=== PATIENT | male | born 1955 | race Caucasian/White ===

== ENCOUNTER 2021-02-24 07:17 | Inpatient (IN) | payer MEDICARE, OTHER ==
[2021-02-24] MEDS ORDERED: Acetaminophen 500 MG TAB ONE (08:00)
[2021-02-24 08:19] LABS: #Basophils 0.1 10x3/uL (0.0-0.2); #Eosinphils 0.1 10x3/uL (0.0-0.5); #Monocytes 1.7 10x3/uL (0.0-1.1); #Neutrophils 8.5 10x3/uL (1.5-8.4); %Basophils 0.7 % (0.0-2.0); %Eosinophils 1.2 % (0.0-6.0); %Monocytes 14.8 % (0.0-10.0); Hemoglobin 10.1 g/dL (13.5-17.5); Mean Corpuscular HGB CONC 32.7 g/dL (32.0-36.0); Mean Corpuscular Hemoglobin 30.9 pg (27.0-33.0); Mean Corpuscular Volume 94.5 fl (81.2-95.1); Mean Platelet Volume 11.1 fl (7.4-10.4); Platelet Count 304 10x3/uL (150-450); RBC Distribution Width 13.5 % (11.5-14.5); Red Blood Cell (RBC) Count 3.27 10x6/uL (4.32-5.72); White Blood Cell (WBC) Count 11.5 10x3/uL (3.5-10.5)
[2021-02-24 08:28] LABS: PTT 33.5 sec (22.0-33.0); Prothrombin Time 11.3 sec (9.5-12.1)
[2021-02-24 08:34] LABS: ALT (SGPT) 11 U/L (8-55); AST (SGOT) 14 U/L (5-34); Albumin 3.9 g/dL (3.4-4.8); Alkaline Phosphatase 87 U/L (40-110); Anion Gap 17 mmol/L (10-20); BUN (Urea Nitrogen) 45 mg/dL (8.4-25.7); Bilirubin, Total 0.9 mg/dL (0.2-1.2); Calc. Creatinine Clearance 0 mL/min (70-130); Calcium 9.6 mg/dL (7.8-10.44); Carbon Dioxide 16 mmol/L (23-31); Chloride 103 mmol/L (98-107); Glucose 93 mg/dL (80-115); Potassium 4.3 mmol/L (3.5-5.1); Protein, Total 7.9 g/dL (5.8-8.1); Sodium 132 mmol/L (136-145)
[2021-02-24] MEDS ORDERED: Piperacillin/Tazobactam 4.5 GM VIAL ONE (08:39)
[2021-02-24 11:02] LABS: SARS-CoV-2 NAA Rapid Test Not Detected (NotDetected)
[2021-02-24 14:09] VITALS: BMI 29.1
[2021-02-24] MEDS ORDERED: Calcium Carbonate 500 MG ChewTAB PO PRN (14:12)
[2021-02-24] MEDS ORDERED: Senokot S 8.6-50 MG TAB PO PRN (14:12)
[2021-02-24] MEDS ORDERED: Ondansetron PF 4 MG/2 ML Vial IVP PRN (14:12)
[2021-02-24] MEDS ORDERED: hydrALAZINE 20 MG/ML VIAL SLOW IVP PRN (14:14)
[2021-02-24] MEDS ORDERED: Dextrose 50% Abboject 50 ML SYRINGE SLOW IVP PRN (14:20)
[2021-02-24] MEDS ORDERED: Dextrose 5% in Water 1,000 ML IV PRN (14:20)
[2021-02-24] MEDS ORDERED: Sodium Chloride 0.9% 500 ML IV SCH (14:45)
[2021-02-24] MEDS: hydrALAZINE 25 MG TAB PO SCH ×2 (15:24→20:53)
[2021-02-24] MEDS ORDERED: FLU VACC QS2021-22(65YR UP)/PF 240 MCG/0.7 ML SYRINGE IM ONE (16:15)
[2021-02-24] MEDS: Acetaminophen 325 MG TAB PO PRN ×2 (16:37→20:51)
[2021-02-24] MEDS: Heparin 5,000 UNITS/ML VIAL SC SCH ×2 (17:53→20:58)
[2021-02-24] MEDS: Carvedilol 12.5 MG TAB PO SCH (20:50)
[2021-02-24] MEDS: Atorvastatin Calcium 40 MG TAB PO SCH (20:50)
[2021-02-24] MEDS ORDERED: Cefepime 2 GM in Sodium Chloride 0.9% 100 ML IVPB SCH (21:00)
[2021-02-25] MEDS: cloNIDine 0.1 MG TAB PO SCH ×3 (00:04→22:30)
[2021-02-25] MEDS: Acetaminophen 325 MG TAB PO PRN ×4 (00:07→18:26)
[2021-02-25 06:59] LABS: Mean Corpuscular HGB CONC 32.9 g/dL (32.0-36.0); Mean Corpuscular Hemoglobin 31.9 pg (27.0-33.0); Mean Corpuscular Volume 96.8 fl (81.2-95.1); Mean Platelet Volume 11.5 fl (7.4-10.4); Platelet Count 234 10x3/uL (150-450); RBC Distribution Width 13.8 % (11.5-14.5); Red Blood Cell (RBC) Count 2.51 10x6/uL (4.32-5.72)
[2021-02-25 07:11] LABS: Anion Gap 14 mmol/L (10-20); BUN (Urea Nitrogen) 49 mg/dL (8.4-25.7); Calc. Creatinine Clearance 28 mL/min (70-130); Calcium 8.3 mg/dL (7.8-10.44); Carbon Dioxide 17 mmol/L (23-31); Cardiac Risk 5.4 (Less than 4.5); Chloride 109 mmol/L (98-107); Cholesterol 108 mg/dl (< 200 Desired); Glucose 129 mg/dL (80-115); HDL Cholesterol 20 mg/dL (>60 Neg Risk); LDL Cholesterol, Calculated 63 mg/dL; Potassium 3.8 mmol/L (3.5-5.1); Sodium 136 mmol/L (136-145); Triglycerides 124 mg/dL (Less than 150)
[2021-02-25 07:22] LABS: MDiff Complete? YES
[2021-02-25 07:25] LABS: Band 12 % (5-11); Eosinophils 2 % (0-10); Lymphocytes 12 % (21-51); Monocytes 15 % (0-10); Neutrophil 58 % (42-75); Reactive Lymphocytes 1 % (0-10)
[2021-02-25 07:26] LABS: Platelet Morphology Comment Appears Adequate; RBC Morphology Normal
[2021-02-25 10:16] LABS: Vancomycin, Random 7.1 ug/mL (See Comment)
[2021-02-25] MEDS: Magnesium Oxide 400 MG TAB PO SCH (11:46)
[2021-02-25] MEDS: Carvedilol 12.5 MG TAB PO SCH ×2 (11:46→22:30)
[2021-02-25] MEDS: hydrALAZINE 25 MG TAB PO SCH ×3 (11:46→22:35)
[2021-02-25] MEDS: Clopidogrel Bisulfate 75 MG TAB PO SCH (11:46)
[2021-02-25] MEDS: Aspirin 81 mg Enteric Coated Tablet PO SCH (11:46)
[2021-02-25] MEDS: Ferrous Sulfate 325 MG TAB PO SCH (11:47)
[2021-02-25] MEDS: Heparin 5,000 UNITS/ML VIAL SC SCH ×3 (11:47→22:29)
[2021-02-25] MEDS: Lantus 1000 UNITS/10 ML VIAL SC SCH (11:48)
[2021-02-25] MEDS ORDERED: SODIUM CHLORIDE 0.9% IVPB SCH (12:00)
[2021-02-25] MEDS ORDERED: VANCOMYCIN IVPB SCH (12:00)
[2021-02-25] MEDS ORDERED: Vancomycin 1.5 GRAM/300 ML BAG 1.5 GM in Premix Bag 1 BAG IVPB SCH (12:30)
[2021-02-25 13:02] LABS: Hemoglobin A1c 5.5 % (4.0-6.0)
[2021-02-25] MEDS: Sodium Chloride 0.9% 1,000 ML IV SCH ×2 (18:33→18:36)
[2021-02-25] MEDS ORDERED: Cefepime 1 GM in Sodium Chloride 0.9% 100 ML IVPB SCH (21:00)
[2021-02-25] MEDS: Atorvastatin Calcium 40 MG TAB PO SCH (22:30)
[2021-02-26] MEDS: Sodium Chloride 0.9% 1,000 ML IV SCH ×3 (03:08→23:34)
[2021-02-26 07:02] LABS: #Basophils 0.1 10x3/uL (0.0-0.2); #Eosinphils 0.2 10x3/uL (0.0-0.5); #Monocytes 1.2 10x3/uL (0.0-1.1); #Neutrophils 7.9 10x3/uL (1.5-8.4); %Basophils 0.8 % (0.0-2.0); %Eosinophils 2.1 % (0.0-6.0); %Lymphocytes 10.3 % (18.0-47.0); %Monocytes 11.7 % (0.0-10.0); %Neutrophils 74.3 % (40.0-75.0); Hemoglobin 7.6 g/dL (13.5-17.5); Mean Corpuscular HGB CONC 32.6 g/dL (32.0-36.0); Mean Corpuscular Hemoglobin 30.6 pg (27.0-33.0); Mean Platelet Volume 10.7 fl (7.4-10.4); Platelet Count 263 10x3/uL (150-450); RBC Distribution Width 14.1 % (11.5-14.5); Red Blood Cell (RBC) Count 2.48 10x6/uL (4.32-5.72); White Blood Cell (WBC) Count 10.6 10x3/uL (3.5-10.5)
[2021-02-26 07:17] LABS: Anion Gap 14 mmol/L (10-20); BUN (Urea Nitrogen) 50 mg/dL (8.4-25.7); Calc. Creatinine Clearance 29 mL/min (70-130); Calcium 8.3 mg/dL (7.8-10.44); Carbon Dioxide 16 mmol/L (23-31); Chloride 112 mmol/L (98-107); Glucose 92 mg/dL (80-115); Potassium 4.2 mmol/L (3.5-5.1); Sodium 138 mmol/L (136-145)
[2021-02-26] MEDS ORDERED: Epoetin (ESRD) 20,000 UNITS/ML SC SCH (08:30)
[2021-02-26] MEDS ORDERED: EPOETIN ALFA-EPBX (ESRD) 4,000 UNIT/ML VIAL SC SCH (08:45)
[2021-02-26] MEDS: cloNIDine 0.1 MG TAB PO SCH ×2 (09:44→21:42)
[2021-02-26] MEDS: Sodium Bicarbonate Tab 325 MG TAB PO SCH ×3 (09:44→21:42)
[2021-02-26] MEDS: hydrALAZINE 25 MG TAB PO SCH ×3 (09:45→21:42)
[2021-02-26] MEDS: Ferrous Sulfate 325 MG TAB PO SCH (09:45)
[2021-02-26] MEDS: Magnesium Oxide 400 MG TAB PO SCH (09:45)
[2021-02-26] MEDS: Aspirin 81 mg Enteric Coated Tablet PO SCH (09:45)
[2021-02-26] MEDS: Carvedilol 12.5 MG TAB PO SCH ×2 (09:46→21:43)
[2021-02-26] MEDS: Clopidogrel Bisulfate 75 MG TAB PO SCH (09:46)
[2021-02-26] MEDS: Heparin 5,000 UNITS/ML VIAL SC SCH ×3 (09:46→21:30)
[2021-02-26] MEDS: Lantus 1000 UNITS/10 ML VIAL SC SCH (10:13)
[2021-02-26 11:47] LABS: Vancomycin, Random 20.4 ug/mL (See Comment)
[2021-02-26] MEDS: SODIUM CHLORIDE IVPB SCH (18:40)
[2021-02-26] MEDS: DAPTOMYCIN IVPB SCH (18:40)
[2021-02-26] MEDS: ADMIXTURE FEE IVPB SCH (18:40)
[2021-02-26] MEDS: Acetaminophen 325 MG TAB PO PRN (20:15)
[2021-02-26] MEDS: Atorvastatin Calcium 40 MG TAB PO SCH (21:43)
[2021-02-27 03:51] LABS: #Basophils 0.1 10x3/uL (0.0-0.2); #Eosinphils 0.3 10x3/uL (0.0-0.5); #Monocytes 1.2 10x3/uL (0.0-1.1); #Neutrophils 5.8 10x3/uL (1.5-8.4); %Basophils 0.7 % (0.0-2.0); %Eosinophils 3.6 % (0.0-6.0); %Monocytes 13.9 % (0.0-10.0); %Neutrophils 66.8 % (40.0-75.0); Mean Corpuscular HGB CONC 31.7 g/dL (32.0-36.0); Mean Corpuscular Hemoglobin 30.4 pg (27.0-33.0); Mean Corpuscular Volume 96.1 fl (81.2-95.1); Mean Platelet Volume 11.1 fl (7.4-10.4); Platelet Count 256 10x3/uL (150-450); RBC Distribution Width 14.2 % (11.5-14.5); White Blood Cell (WBC) Count 8.6 10x3/uL (3.5-10.5)
[2021-02-27 04:02] LABS: Anion Gap 13 mmol/L (10-20); BUN (Urea Nitrogen) 49 mg/dL (8.4-25.7); Calc. Creatinine Clearance 30 mL/min (70-130); Calcium 8.3 mg/dL (7.8-10.44); Carbon Dioxide 16 mmol/L (23-31); Chloride 112 mmol/L (98-107); Glucose 85 mg/dL (80-115); Phosphorus 3.3 mg/dL (2.3-4.7); Potassium 3.8 mmol/L (3.5-5.1); Sodium 137 mmol/L (136-145)
[2021-02-27] MEDS: Sodium Bicarbonate Tab 325 MG TAB PO SCH ×3 (09:34→21:28)
[2021-02-27] MEDS: cloNIDine 0.1 MG TAB PO SCH ×2 (09:35→21:29)
[2021-02-27] MEDS: Ferrous Sulfate 325 MG TAB PO SCH (09:35)
[2021-02-27] MEDS: Magnesium Oxide 400 MG TAB PO SCH (09:35)
[2021-02-27] MEDS: Aspirin 81 mg Enteric Coated Tablet PO SCH (09:37)
[2021-02-27] MEDS: hydrALAZINE 25 MG TAB PO SCH ×3 (09:37→21:29)
[2021-02-27] MEDS: Carvedilol 12.5 MG TAB PO SCH (09:38)
[2021-02-27] MEDS: Heparin 5,000 UNITS/ML VIAL SC SCH ×3 (09:50→21:00)
[2021-02-27] MEDS: Lantus 1000 UNITS/10 ML VIAL SC SCH (09:50)
[2021-02-27] MEDS ORDERED: Carvedilol 12.5 MG TAB PO SCH (11:40)
[2021-02-27] MEDS: Sodium Chloride 0.9% 1,000 ML IV SCH ×2 (15:58→20:00)
[2021-02-27] MEDS: Acetaminophen 325 MG TAB PO PRN (18:35)
[2021-02-27] MEDS: Atorvastatin Calcium 40 MG TAB PO SCH (21:29)
[2021-02-27] MEDS: Carvedilol 25 MG TAB PO SCH (21:29)
[2021-02-28 03:56] LABS: #Basophils 0.1 10x3/uL (0.0-0.2); #Eosinphils 0.4 10x3/uL (0.0-0.5); #Monocytes 0.9 10x3/uL (0.0-1.1); #Neutrophils 4.7 10x3/uL (1.5-8.4); %Lymphocytes 14.6 % (18.0-47.0); %Monocytes 12.4 % (0.0-10.0); %Neutrophils 64.9 % (40.0-75.0); Hemoglobin 7.7 g/dL (13.5-17.5); Mean Corpuscular HGB CONC 31.6 g/dL (32.0-36.0); Mean Corpuscular Hemoglobin 30.1 pg (27.0-33.0); Mean Corpuscular Volume 95.3 fl (81.2-95.1); Mean Platelet Volume 11.1 fl (7.4-10.4); Platelet Count 286 10x3/uL (150-450); RBC Distribution Width 15.1 % (11.5-14.5); Red Blood Cell (RBC) Count 2.56 10x6/uL (4.32-5.72); White Blood Cell (WBC) Count 7.2 10x3/uL (3.5-10.5)
[2021-02-28 04:11] LABS: Anion Gap 14 mmol/L (10-20); BUN (Urea Nitrogen) 48 mg/dL (8.4-25.7); Calc. Creatinine Clearance 34 mL/min (70-130); Calcium 7.8 mg/dL (7.8-10.44); Carbon Dioxide 16 mmol/L (23-31); Chloride 113 mmol/L (98-107); Glucose 111 mg/dL (80-115); Potassium 4.2 mmol/L (3.5-5.1); Sodium 139 mmol/L (136-145)
[2021-02-28] MEDS: Magnesium Oxide 400 MG TAB PO SCH (08:45)
[2021-02-28] MEDS: Carvedilol 25 MG TAB PO SCH ×2 (08:45→20:54)
[2021-02-28] MEDS: Aspirin 81 mg Enteric Coated Tablet PO SCH (08:45)
[2021-02-28] MEDS: cloNIDine 0.1 MG TAB PO SCH (08:45)
[2021-02-28] MEDS: hydrALAZINE 25 MG TAB PO SCH ×3 (08:46→20:52)
[2021-02-28] MEDS: Ferrous Sulfate 325 MG TAB PO SCH (08:46)
[2021-02-28] MEDS: Heparin 5,000 UNITS/ML VIAL SC SCH ×3 (08:47→20:54)
[2021-02-28] MEDS: Sodium Bicarbonate Tab 325 MG TAB PO SCH ×3 (08:47→20:52)
[2021-02-28] MEDS: Lantus 1000 UNITS/10 ML VIAL SC SCH (08:48)
[2021-02-28] MEDS: Sodium Chloride 0.9% 1,000 ML IV SCH ×2 (11:48→15:20)
[2021-02-28] MEDS ORDERED: Furosemide 40 MG/4 ML VIAL SLOW IVP SCH (16:00)
[2021-02-28] MEDS: DAPTOMYCIN IVPB SCH (19:00)
[2021-02-28] MEDS ORDERED: Furosemide 100 MG/10 ML VIAL SLOW IVP SCH (19:00)
[2021-02-28] MEDS: SODIUM CHLORIDE IVPB SCH (19:00)
[2021-02-28] MEDS: ADMIXTURE FEE IVPB SCH (19:00)
[2021-02-28] MEDS: Atorvastatin Calcium 40 MG TAB PO SCH (20:52)
[2021-03-01 05:48] LABS: #Basophils 0.1 10x3/uL (0.0-0.2); #Eosinphils 0.5 10x3/uL (0.0-0.5); #Neutrophils 5.9 10x3/uL (1.5-8.4); %Basophils 0.9 % (0.0-2.0); %Eosinophils 5.2 % (0.0-6.0); %Lymphocytes 13.5 % (18.0-47.0); %Monocytes 10.9 % (0.0-10.0); %Neutrophils 66.7 % (40.0-75.0); Hemoglobin 8.2 g/dL (13.5-17.5); Mean Corpuscular HGB CONC 31.9 g/dL (32.0-36.0); Mean Corpuscular Hemoglobin 30.6 pg (27.0-33.0); Mean Corpuscular Volume 95.9 fl (81.2-95.1); Mean Platelet Volume 10.4 fl (7.4-10.4); Platelet Count 327 10x3/uL (150-450); RBC Distribution Width 15.2 % (11.5-14.5); Red Blood Cell (RBC) Count 2.68 10x6/uL (4.32-5.72); White Blood Cell (WBC) Count 8.8 10x3/uL (3.5-10.5)
[2021-03-01 05:55] LABS: Anion Gap 14 mmol/L (10-20); BUN (Urea Nitrogen) 46 mg/dL (8.4-25.7); CK (CPK) 26 U/L (30-200); Calc. Creatinine Clearance 36 mL/min (70-130); Calcium 8.7 mg/dL (7.8-10.44); Carbon Dioxide 17 mmol/L (23-31); Chloride 113 mmol/L (98-107); Glucose 101 mg/dL (80-115); Sodium 140 mmol/L (136-145)
[2021-03-01] MEDS ORDERED: cloNIDine 0.1 MG TAB PO SCH (06:00)
[2021-03-01] MEDS: Ferrous Sulfate 325 MG TAB PO SCH (08:12)
[2021-03-01] MEDS: Sodium Bicarbonate Tab 325 MG TAB PO SCH ×3 (08:12→21:24)
[2021-03-01] MEDS: hydrALAZINE 25 MG TAB PO SCH ×3 (08:12→21:23)
[2021-03-01] MEDS: Magnesium Oxide 400 MG TAB PO SCH (08:13)
[2021-03-01] MEDS: Carvedilol 25 MG TAB PO SCH ×2 (08:14→21:23)
[2021-03-01] MEDS: Heparin 5,000 UNITS/ML VIAL SC SCH ×3 (08:14→21:24)
[2021-03-01] MEDS: Aspirin 81 mg Enteric Coated Tablet PO SCH (08:14)
[2021-03-01] MEDS: Sodium Chloride 0.9% 1,000 ML IV SCH (08:18)
[2021-03-01] MEDS ORDERED: NIFEdipine XL 60 MG TAB PO SCH (09:00)
[2021-03-01] MEDS: Lantus 1000 UNITS/10 ML VIAL SC SCH (09:39)
[2021-03-01] MEDS: Acetaminophen 325 MG TAB PO PRN (17:13)
[2021-03-01] MEDS: HYDROcodone/Acetaminophen 5/325 mg Tablet PO PRN (21:22)
[2021-03-01] MEDS: Atorvastatin Calcium 40 MG TAB PO SCH (21:23)
[2021-03-02 04:40] LABS: #Basophils 0.1 10x3/uL (0.0-0.2); #Eosinphils 0.5 10x3/uL (0.0-0.5); #Neutrophils 6.3 10x3/uL (1.5-8.4); %Basophils 0.8 % (0.0-2.0); %Eosinophils 4.8 % (0.0-6.0); %Lymphocytes 14.3 % (18.0-47.0); %Monocytes 10.9 % (0.0-10.0); %Neutrophils 65.9 % (40.0-75.0); Hemoglobin 8.2 g/dL (13.5-17.5); Mean Corpuscular HGB CONC 32.7 g/dL (32.0-36.0); Mean Corpuscular Hemoglobin 31.1 pg (27.0-33.0); Mean Corpuscular Volume 95.1 fl (81.2-95.1); Mean Platelet Volume 10.8 fl (7.4-10.4); Platelet Count 339 10x3/uL (150-450); RBC Distribution Width 15.1 % (11.5-14.5); Red Blood Cell (RBC) Count 2.64 10x6/uL (4.32-5.72); White Blood Cell (WBC) Count 9.5 10x3/uL (3.5-10.5)
[2021-03-02 04:57] LABS: Anion Gap 15 mmol/L (10-20); BUN (Urea Nitrogen) 49 mg/dL (8.4-25.7); Calc. Creatinine Clearance 31 mL/min (70-130); Calcium 8.6 mg/dL (7.8-10.44); Carbon Dioxide 17 mmol/L (23-31); Chloride 112 mmol/L (98-107); Glucose 137 mg/dL (80-115); Potassium 4.2 mmol/L (3.5-5.1); Sodium 140 mmol/L (136-145)
[2021-03-02] MEDS ORDERED: EPINEPHrine 1 MG/ML AMP ONE (06:45)
[2021-03-02] MEDS ORDERED: Bupivacaine 0.25% HCL 30 ML VIAL ONE (06:45)
[2021-03-02] MEDS ORDERED: PROPOFOL 20 ML ONE (07:06)
[2021-03-02] MEDS ORDERED: Midazolam HCl 2 mg/2 ml Vial ONE (07:07)
[2021-03-02] MEDS ORDERED: Fentanyl 100 MCG/2 ML VIAL ONE (07:07)
[2021-03-02] MEDS ORDERED: PHENYLEPHRINE-NS 100 MCG/ML 10 ML SYRINGE ONE (07:07)
[2021-03-02] MEDS ORDERED: Ondansetron PF 4 MG/2 ML Vial ONE (07:07)
[2021-03-02] MEDS ORDERED: ePHEDrine Sulfate 50 MG/10 ML VIAL ONE (07:08)
[2021-03-02] MEDS: Heparin 5,000 UNITS/ML VIAL SC SCH ×3 (08:47→22:40)
[2021-03-02] MEDS: Ferrous Sulfate 325 MG TAB PO SCH (08:47)
[2021-03-02] MEDS: Sodium Bicarbonate Tab 325 MG TAB PO SCH ×3 (08:48→22:40)
[2021-03-02] MEDS: Magnesium Oxide 400 MG TAB PO SCH (08:48)
[2021-03-02] MEDS: Aspirin 81 mg Enteric Coated Tablet PO SCH (08:48)
[2021-03-02] MEDS: Carvedilol 25 MG TAB PO SCH ×2 (08:48→22:39)
[2021-03-02] MEDS ORDERED: Furosemide 40 MG/4 ML VIAL SLOW IVP SCH (09:00)
[2021-03-02] MEDS ORDERED: Amlodipine 5 MG TAB PO SCH (09:00)
[2021-03-02] MEDS: hydrALAZINE 25 MG TAB PO SCH ×4 (09:05→22:39)
[2021-03-02] MEDS: Lantus 1000 UNITS/10 ML VIAL SC SCH (09:05)
[2021-03-02] MEDS: HYDROcodone/Acetaminophen 5/325 mg Tablet PO PRN (15:50)
[2021-03-02] MEDS: ADMIXTURE FEE IVPB SCH (18:56)
[2021-03-02] MEDS: SODIUM CHLORIDE IVPB SCH (18:56)
[2021-03-02] MEDS: DAPTOMYCIN IVPB SCH (18:56)
[2021-03-02] MEDS: Atorvastatin Calcium 40 MG TAB PO SCH (22:39)
[2021-03-03 04:21] LABS: Anion Gap 14 mmol/L (10-20); BUN (Urea Nitrogen) 53 mg/dL (8.4-25.7); Calc. Creatinine Clearance 29 mL/min (70-130); Calcium 8.2 mg/dL (7.8-10.44); Carbon Dioxide 19 mmol/L (23-31); Chloride 111 mmol/L (98-107); Glucose 116 mg/dL (80-115); Potassium 4.2 mmol/L (3.5-5.1); Sodium 140 mmol/L (136-145)
[2021-03-03 04:25] LABS: #Basophils 0.1 10x3/uL (0.0-0.2); #Eosinphils 0.6 10x3/uL (0.0-0.5); %Basophils 0.8 % (0.0-2.0); %Eosinophils 5.8 % (0.0-6.0); %Lymphocytes 16.2 % (18.0-47.0); %Monocytes 10.4 % (0.0-10.0); %Neutrophils 62.9 % (40.0-75.0); Hemoglobin 7.9 g/dL (13.5-17.5); Mean Corpuscular Hemoglobin 31.2 pg (27.0-33.0); Mean Corpuscular Volume 97.6 fl (81.2-95.1); Mean Platelet Volume 10.6 fl (7.4-10.4); Platelet Count 355 10x3/uL (150-450); Red Blood Cell (RBC) Count 2.53 10x6/uL (4.32-5.72); White Blood Cell (WBC) Count 9.6 10x3/uL (3.5-10.5)
[2021-03-03 08:31] VITALS: TEMP 98.1
[2021-03-03] MEDS: Carvedilol 25 MG TAB PO SCH (08:49)
[2021-03-03] MEDS: Sodium Bicarbonate Tab 325 MG TAB PO SCH ×2 (08:49→15:28)
[2021-03-03] MEDS: hydrALAZINE 25 MG TAB PO SCH ×2 (08:49→15:28)
[2021-03-03] MEDS: Ferrous Sulfate 325 MG TAB PO SCH (08:49)
[2021-03-03] MEDS: Magnesium Oxide 400 MG TAB PO SCH (08:49)
[2021-03-03] MEDS: Lantus 1000 UNITS/10 ML VIAL SC SCH (08:50)
[2021-03-03] MEDS: Heparin 5,000 UNITS/ML VIAL SC SCH ×2 (08:50→15:28)
[2021-03-03] MEDS: Aspirin 81 mg Enteric Coated Tablet PO SCH (08:50)
[2021-03-03] MEDS ORDERED: Amlodipine 10 MG TAB PO SCH (09:00)
[2021-03-03 12:27] VITALS: BP 160/73
== END 2021-03-03 15:30 | disposition home or self-care (01) | DRG 871 ==
LOC: CSHERS 07:17 → CSHTELE 13:21
PROVIDERS: ADMIT Internal Medicine; ATTEND Hospitalist
PROC: 0JH60XZ Insertion of Tunneled Vascular Access Device into Chest Subcutaneous Tissue and Fascia, Open Approach (ICD-10-PCS; principal; 2021-03-02)
PROC: 02HV33Z Insertion of Infusion Device into Superior Vena Cava, Percutaneous Approach (ICD-10-PCS; 2021-03-02)
PROC: B5181ZA Fluoroscopy of Superior Vena Cava using Low Osmolar Contrast, Guidance (ICD-10-PCS; 2021-03-02)
DX: A41.02 Sepsis due to Methicillin resistant Staphylococcus aureus (principal); J96.01 Acute respiratory failure with hypoxia; I50.31 Acute diastolic (congestive) heart failure; I33.0 Acute and subacute infective endocarditis; N18.4 Chronic kidney disease, stage 4 (severe); N17.9 Acute kidney failure, unspecified; E87.1 Hypo-osmolality and hyponatremia; E87.2 Acidosis; M86.8X7 Other osteomyelitis, ankle and foot; L03.116 Cellulitis of left lower limb; L02.612 Cutaneous abscess of left foot; I13.0 Hypertensive heart and chronic kidney disease with heart failure and stage 1 through stage 4 chronic kidney disease, or unspecified chronic kidney disease; Z20.822 Contact with and (suspected) exposure to COVID-19; E11.22 Type 2 diabetes mellitus with diabetic chronic kidney disease; D63.1 Anemia in chronic kidney disease; E78.5 Hyperlipidemia, unspecified; E11.42 Type 2 diabetes mellitus with diabetic polyneuropathy; E11.610 Type 2 diabetes mellitus with diabetic neuropathic arthropathy; E11.69 Type 2 diabetes mellitus with other specified complication; I65.23 Occlusion and stenosis of bilateral carotid arteries; I25.5 Ischemic cardiomyopathy; K21.9 Gastro-esophageal reflux disease without esophagitis; E11.621 Type 2 diabetes mellitus with foot ulcer; M10.9 Gout, unspecified; L97.529 Non-pressure chronic ulcer of other part of left foot with unspecified severity; I25.10 Atherosclerotic heart disease of native coronary artery without angina pectoris; E11.628 Type 2 diabetes mellitus with other skin complications; Z79.82 Long term (current) use of aspirin; Z79.02 Long term (current) use of antithrombotics/antiplatelets; Z79.899 Other long term (current) drug therapy; Z95.5 Presence of coronary angioplasty implant and graft; Z79.4 Long term (current) use of insulin; I25.2 Old myocardial infarction
CPT/HCPCS: 0240U; 36415; 36416; 36430; 70450; 70551; 71045; 76000; 80048; 80053; 80061; 80202; 82550; 83036; 83605; 83880; 83970; 84100; 85025; 85379; 85610; 85730; 86140; 86850; 86900; 86901; 87040; 87077; 87149; 87186; 93005; 93010; 93306; 93880; 93923; 93970; 94760; 94762; 96365; 96367; 96375; C1750; J0171; J0692; J0878; J1642; J1644; J1815; J1940; J2250; J2405; J2543; J2704; J3010; J3370; J3490; J7030; J7050; P9016; Q5105; S0020

== ENCOUNTER 2021-03-10 13:15 | Outpatient (CLI) | payer MEDICARE | END 2021-03-10 13:16 | disposition home or self-care (01) | LOC: CSHWCC 13:15 | PROVIDERS: ATTEND Nurse Practitioner Family | DX: E11.621 Type 2 diabetes mellitus with foot ulcer (principal); E11.22 Type 2 diabetes mellitus with diabetic chronic kidney disease; I13.0 Hypertensive heart and chronic kidney disease with heart failure and stage 1 through stage 4 chronic kidney disease, or unspecified chronic kidney disease; L97.522 Non-pressure chronic ulcer of other part of left foot with fat layer exposed; I50.32 Chronic diastolic (congestive) heart failure; N18.4 Chronic kidney disease, stage 4 (severe); G90.09 Other idiopathic peripheral autonomic neuropathy; I25.10 Atherosclerotic heart disease of native coronary artery without angina pectoris; L03.119 Cellulitis of unspecified part of limb; M86.9 Osteomyelitis, unspecified; R29.898 Other symptoms and signs involving the musculoskeletal system | CPT/HCPCS: 97139; G0463; 99203 ==

== ENCOUNTER 2021-04-11 09:45 | Emergency (ER) | payer MEDICARE | END 2021-04-11 10:54 | disposition home or self-care (01) | LOC: CSHERS 09:45 | DX: M70.21 Olecranon bursitis, right elbow (principal); I25.10 Atherosclerotic heart disease of native coronary artery without angina pectoris; I11.0 Hypertensive heart disease with heart failure; I50.9 Heart failure, unspecified; I25.2 Old myocardial infarction; E11.9 Type 2 diabetes mellitus without complications; E78.5 Hyperlipidemia, unspecified; K21.9 Gastro-esophageal reflux disease without esophagitis | CPT/HCPCS: 99283 ==

== ENCOUNTER 2021-07-20 20:28 | Inpatient (IN) | payer MEDICARE ==
[2021-07-20 21:10] LABS: Hemoglobin 11.3 g/dL (13.5-17.5); Mean Corpuscular HGB CONC 32.2 g/dL (32.0-36.0); Mean Corpuscular Hemoglobin 29.4 pg (27.0-33.0); Mean Corpuscular Volume 91.2 fl (81.2-95.1); Mean Platelet Volume 11.6 fl (7.4-10.4); Platelet Count 171 10x3/uL (150-450); RBC Distribution Width 17.8 % (11.5-14.5); Red Blood Cell (RBC) Count 3.85 10x6/uL (4.32-5.72)
[2021-07-20 21:11] LABS: Manual Diff?? YES
[2021-07-20 21:12] LABS: MDiff Complete? YES
[2021-07-20 21:13] LABS: ALT (SGPT) 11 U/L (8-55); AST (SGOT) 16 U/L (5-34); Albumin 4.3 g/dL (3.4-4.8); Alkaline Phosphatase 81 U/L (40-110); Anion Gap 15 mmol/L (10-20); BUN (Urea Nitrogen) 35 mg/dL (8.4-25.7); Bilirubin, Total 0.4 mg/dL (0.2-1.2); Calc. Creatinine Clearance 0 mL/min (70-130); Calcium 8.5 mg/dL (7.8-10.44); Carbon Dioxide 17 mmol/L (23-31); Chloride 104 mmol/L (98-107); Globulin 2.7 g/dL (2.4-3.5); Glucose 115 mg/dL (80-115); Potassium 5.4 mmol/L (3.5-5.1); Sodium 131 mmol/L (136-145)
[2021-07-20 21:33] LABS: Band 9 % (5-11); Eosinophils 4 % (0-10); Lymphocytes 17 % (21-51); Monocytes 12 % (0-10); Neutrophil 53 % (42-75); Reactive Lymphocytes 3 % (0-10)
[2021-07-20 21:34] LABS: Platelet Morphology Comment Appears Adequate
[2021-07-20 21:35] LABS: Anisocytosis SLIGHT = 6-15 cells (100X) (0-5/hpf); Elliptocytes SLIGHT = 2-5 cells (100X) (0-1/hpf); Macrocytosis SLIGHT = 6-15 cells (100X) (0-5/hpf); Microcytosis SLIGHT = 6-15 cells (100X) (0-5/hpf)
[2021-07-20] MEDS ORDERED: hydrALAZINE 20 MG/ML VIAL ONE (22:20)
[2021-07-21] MEDS ORDERED: Metoclopramide HCl 10 MG/2 ML VIAL ONE (00:19)
[2021-07-21] MEDS ORDERED: Morphine 4 MG/ML VIAL ONE (00:58)
[2021-07-21] MEDS ORDERED: valACYclovir 500 MG TAB PO SCH (01:30)
[2021-07-21] MEDS ORDERED: niCARdipine 25 MG/10 ML VIAL ONE (01:45)
[2021-07-21 02:02] LABS: Troponin I 0.012 ng/mL (< 0.028)
[2021-07-21 02:10] LABS: SARS-CoV-2 NAA Rapid Test Not Detected (NotDetected)
[2021-07-21 03:47] VITALS: BMI 27.7
[2021-07-21 03:52] VITALS: TEMP 97.8
[2021-07-21] MEDS ORDERED: Senokot S 8.6-50 MG TAB PO PRN (03:55)
[2021-07-21] MEDS ORDERED: HYDROcodone/Acetaminophen 10/325 mg Tablet PO PRN (03:55)
[2021-07-21] MEDS ORDERED: HYDROcodone/Acetaminophen 5/325 mg Tablet PO PRN (03:55)
[2021-07-21] MEDS ORDERED: Ondansetron PF 4 MG/2 ML Vial IVP PRN (03:55)
[2021-07-21] MEDS ORDERED: Ondansetron ODT 4 MG TAB PO PRN (03:55)
[2021-07-21] MEDS ORDERED: Dextrose 50% Abboject 50 ML SYRINGE SLOW IVP PRN (04:02)
[2021-07-21] MEDS ORDERED: HumaLOG 300 UNITS/3 ML VIAL SC PRN (04:02)
[2021-07-21] MEDS ORDERED: Dextrose 5% in Water 1,000 ML IV PRN (04:02)
[2021-07-21] MEDS: Sodium Chloride 0.9% 1,000 ML IV SCH ×2 (04:39→16:27)
[2021-07-21 04:44] LABS: Hemoglobin 10.3 g/dL (13.5-17.5); Mean Corpuscular HGB CONC 31.7 g/dL (32.0-36.0); Mean Corpuscular Hemoglobin 28.9 pg (27.0-33.0); Mean Platelet Volume 11.7 fl (7.4-10.4); Platelet Count 137 10x3/uL (150-450); RBC Distribution Width 17.9 % (11.5-14.5); Red Blood Cell (RBC) Count 3.57 10x6/uL (4.32-5.72); White Blood Cell (WBC) Count 4.4 10x3/uL (3.5-10.5)
[2021-07-21 04:47] LABS: MDiff Complete? YES; Manual Diff?? YES
[2021-07-21 04:54] LABS: Anion Gap 14 mmol/L (10-20); BUN (Urea Nitrogen) 32 mg/dL (8.4-25.7); Calc. Creatinine Clearance 37 mL/min (70-130); Calcium 8.5 mg/dL (7.8-10.44); Carbon Dioxide 16 mmol/L (23-31); Chloride 109 mmol/L (98-107); Glucose 94 mg/dL (80-115); Magnesium 1.4 mg/dL (1.6-2.6); Phosphorus 3.5 mg/dL (2.3-4.7); Potassium 4.9 mmol/L (3.5-5.1); Sodium 134 mmol/L (136-145)
[2021-07-21 05:00] LABS: Troponin I 0.012 ng/mL (< 0.028)
[2021-07-21] MEDS: niCARdipine 25 MG in Sodium Chloride 0.9% 250 ML 250 ML IVPB SCH ×3 (05:08→20:44)
[2021-07-21 05:18] LABS: Band 6 % (5-11); Eosinophils 6 % (0-10); Lymphocytes 17 % (21-51); Monocytes 16 % (0-10); Neutrophil 54 % (42-75); Platelet Morphology Comment Appears Adequate; Reactive Lymphocytes 1 % (0-10)
[2021-07-21 05:19] LABS: Anisocytosis SLIGHT = 6-15 cells (100X) (0-5/hpf); Macrocytosis SLIGHT = 6-15 cells (100X) (0-5/hpf); Microcytosis SLIGHT = 6-15 cells (100X) (0-5/hpf)
[2021-07-21] MEDS: Carvedilol 25 MG TAB PO SCH ×2 (08:31→16:26)
[2021-07-21] MEDS: Clopidogrel Bisulfate 75 MG TAB PO SCH (08:31)
[2021-07-21] MEDS: Aspirin 81 mg Enteric Coated Tablet PO SCH (08:31)
[2021-07-21] MEDS: Heparin 5,000 UNITS/ML VIAL SC SCH ×3 (08:31→20:45)
[2021-07-21] MEDS: Pantoprazole 40 MG VIAL IVP SCH (08:32)
[2021-07-21] MEDS: hydrALAZINE 25 MG TAB PO SCH ×3 (08:36→20:45)
[2021-07-21] MEDS ORDERED: Magnesium 2 GM/50 ML(in water) 2 GM in Premix Bag 1 BAG IVPB SCH (09:00)
[2021-07-21] MEDS: Fioricet 325/50/40 mg Tablet PO PRN ×2 (13:07→21:40)
[2021-07-21 20:48] VITALS: BP 143/56
[2021-07-21] MEDS ORDERED: Rosuvastatin 20 MG TAB PO SCH (21:00)
[2021-07-21] MEDS ORDERED: Promethazine HCl 12.5 MG, Admixture Fee 1 EACH in Sodium Chloride 0.9% 50 ML IVPB SCH (21:15)
[2021-07-22 04:29] LABS: #Eosinphils 0.2 10x3/uL (0.0-0.5); #Monocytes 0.5 10x3/uL (0.0-1.1); #Neutrophils 3.3 10x3/uL (1.5-8.4); %Basophils 0.6 % (0.0-2.0); %Eosinophils 3.5 % (0.0-6.0); %Lymphocytes 18.3 % (18.0-47.0); %Monocytes 10.6 % (0.0-10.0); %Neutrophils 66.6 % (40.0-75.0); Hemoglobin 10.1 g/dL (13.5-17.5); Mean Corpuscular HGB CONC 31.8 g/dL (32.0-36.0); Mean Corpuscular Hemoglobin 29.4 pg (27.0-33.0); Mean Corpuscular Volume 92.7 fl (81.2-95.1); Mean Platelet Volume 10.9 fl (7.4-10.4); Platelet Count 137 10x3/uL (150-450); RBC Distribution Width 18.1 % (11.5-14.5); Red Blood Cell (RBC) Count 3.43 10x6/uL (4.32-5.72); White Blood Cell (WBC) Count 4.9 10x3/uL (3.5-10.5)
[2021-07-22 04:46] LABS: Anion Gap 13 mmol/L (10-20); BUN (Urea Nitrogen) 30 mg/dL (8.4-25.7); Calc. Creatinine Clearance 39 mL/min (70-130); Calcium 8.3 mg/dL (7.8-10.44); Carbon Dioxide 16 mmol/L (23-31); Chloride 111 mmol/L (98-107); Glucose 84 mg/dL (80-115); Potassium 5.1 mmol/L (3.5-5.1); Sodium 135 mmol/L (136-145); Uric Acid 7.3 mg/dL (3.5-7.2)
[2021-07-22] MEDS: Sodium Chloride 0.9% 1,000 ML IV SCH (05:49)
[2021-07-22] MEDS ORDERED: valACYclovir 500 MG TAB PO SCH (06:00)
[2021-07-22] MEDS: hydrALAZINE 25 MG TAB PO SCH (08:18)
[2021-07-22] MEDS: Clopidogrel Bisulfate 75 MG TAB PO SCH (08:18)
[2021-07-22] MEDS: Heparin 5,000 UNITS/ML VIAL SC SCH (08:18)
[2021-07-22] MEDS: Pantoprazole 40 MG VIAL IVP SCH (08:18)
[2021-07-22] MEDS: Aspirin 81 mg Enteric Coated Tablet PO SCH (08:18)
[2021-07-22] MEDS: Carvedilol 25 MG TAB PO SCH (08:18)
[2021-07-22] MEDS: Fioricet 325/50/40 mg Tablet PO PRN (09:12)
== END 2021-07-22 13:00 | disposition home or self-care (01) | DRG 866 ==
LOC: CSHERS 20:28 → CSHICU 07-21 01:47
PROVIDERS: ADMIT Family Medicine; ATTEND Internal Medicine
DX: B01.9 Varicella without complication (principal); I16.1 Hypertensive emergency; N18.4 Chronic kidney disease, stage 4 (severe); E87.1 Hypo-osmolality and hyponatremia; Z20.822 Contact with and (suspected) exposure to COVID-19; M10.9 Gout, unspecified; E11.22 Type 2 diabetes mellitus with diabetic chronic kidney disease; B02.9 Zoster without complications; I25.10 Atherosclerotic heart disease of native coronary artery without angina pectoris; I16.0 Hypertensive urgency; E78.5 Hyperlipidemia, unspecified; Z96.651 Presence of right artificial knee joint; E87.5 Hyperkalemia; Z79.82 Long term (current) use of aspirin; Z79.4 Long term (current) use of insulin; Z79.02 Long term (current) use of antithrombotics/antiplatelets; Z79.899 Other long term (current) drug therapy; Z95.5 Presence of coronary angioplasty implant and graft; Z80.0 Family history of malignant neoplasm of digestive organs
CPT/HCPCS: 36415; 36416; 70450; 71045; 80048; 80053; 83735; 83880; 84100; 84484; 84550; 85025; 93005; 93010; 93306; C9113; J0360; J1644; J2270; J2405; J2550; J2765; J3475; J7050; U0002

== ENCOUNTER 2021-08-05 14:36 | Emergency (ER) | payer MEDICARE ==
[2021-08-05] MEDS ORDERED: cloNIDine 0.1 MG TAB ONE ×2 (15:15→15:16)
[2021-08-05] MEDS ORDERED: hydrALAZINE 20 MG/ML VIAL ONE (15:16)
[2021-08-05 15:18] LABS: #Basophils 0.1 10x3/uL (0.0-0.2); #Eosinphils 0.3 10x3/uL (0.0-0.5); #Monocytes 0.4 10x3/uL (0.0-1.1); #Neutrophils 2.4 10x3/uL (1.5-8.4); %Basophils 1.3 % (0.0-2.0); %Eosinophils 7.3 % (0.0-6.0); %Lymphocytes 31.6 % (18.0-47.0); %Monocytes 8.2 % (0.0-10.0); Hemoglobin 11.2 g/dL (13.5-17.5); Mean Corpuscular HGB CONC 30.1 g/dL (32.0-36.0); Mean Corpuscular Hemoglobin 29.3 pg (27.0-33.0); Mean Corpuscular Volume 97.4 fl (81.2-95.1); Mean Platelet Volume 10.4 fl (7.4-10.4); Platelet Count 129 10x3/uL (150-450); RBC Distribution Width 19.1 % (11.5-14.5); Red Blood Cell (RBC) Count 3.82 10x6/uL (4.32-5.72); White Blood Cell (WBC) Count 4.7 10x3/uL (3.5-10.5)
[2021-08-05 15:36] LABS: CRP (Inflammatory) 1.14 mg/dL (= or < 0.5)
[2021-08-05 15:38] LABS: ALT (SGPT) 8 U/L (8-55); AST (SGOT) 19 U/L (5-34); Albumin 4.3 g/dL (3.4-4.8); Alkaline Phosphatase 73 U/L (40-110); Anion Gap 18 mmol/L (10-20); BUN (Urea Nitrogen) 33 mg/dL (8.4-25.7); Bilirubin, Total 0.4 mg/dL (0.2-1.2); Calc. Creatinine Clearance 0 mL/min (70-130); Calcium 8.9 mg/dL (7.8-10.44); Carbon Dioxide 18 mmol/L (23-31); Chloride 108 mmol/L (98-107); Glucose 106 mg/dL (80-115); Lipase 17 U/L (8-78); Magnesium 1.8 mg/dL (1.6-2.6); Potassium 5.1 mmol/L (3.5-5.1); Protein, Total 7.3 g/dL (5.8-8.1); Sodium 139 mmol/L (136-145)
[2021-08-05 15:58] LABS: PTT 30.5 sec (22.0-33.0); Prothrombin Time 10.7 sec (9.5-12.1)
== END 2021-08-05 17:07 | disposition home or self-care (01) ==
LOC: CSHERS 14:36
DX: G51.0 Bell's palsy (principal); I11.0 Hypertensive heart disease with heart failure; I50.9 Heart failure, unspecified; E11.9 Type 2 diabetes mellitus without complications; I25.10 Atherosclerotic heart disease of native coronary artery without angina pectoris; I25.2 Old myocardial infarction; E78.5 Hyperlipidemia, unspecified; K21.9 Gastro-esophageal reflux disease without esophagitis; Z79.4 Long term (current) use of insulin; Z79.82 Long term (current) use of aspirin; Z79.02 Long term (current) use of antithrombotics/antiplatelets; Z79.899 Other long term (current) drug therapy
CPT/HCPCS: 36415; 36416; 70450; 71045; 80053; 82550; 83605; 83690; 83735; 83880; 84443; 84484; 85025; 85610; 85730; 86140; 93005; 94760; 96374; J0360

== ENCOUNTER 2021-09-21 13:09 | Outpatient (CLI) | payer MEDICARE | END 2021-09-21 13:10 | disposition home or self-care (01) | LOC: CSHLAB 13:09 | PROVIDERS: ATTEND Podiatrist | DX: Z01.818 Encounter for other preprocedural examination (principal); Z20.822 Contact with and (suspected) exposure to COVID-19 | CPT/HCPCS: 87811; 93005; 93010 ==

== ENCOUNTER 2021-09-22 10:56 | Day surgery (SDC) | payer MEDICARE ==
[2021-09-21 13:22] VITALS: BMI 27.2
[2021-09-22 12:52] LABS: ALT (SGPT) Less than 6 U/L (8-55); AST (SGOT) 12 U/L (5-34); Albumin 3.9 g/dL (3.4-4.8); Alkaline Phosphatase 74 U/L (40-110); Anion Gap 15 mmol/L (10-20); BUN (Urea Nitrogen) 43 mg/dL (8.4-25.7); Bilirubin, Total 0.5 mg/dL (0.2-1.2); Calc. Creatinine Clearance 34 mL/min (70-130); Calcium 9.2 mg/dL (7.8-10.44); Carbon Dioxide 18 mmol/L (23-31); Chloride 113 mmol/L (98-107); Estimated GFR 23; Globulin 3.3 g/dL (2.4-3.5); Glucose 97 mg/dL (80-115); Potassium 5.2 mmol/L (3.5-5.1); Protein, Total 7.2 g/dL (5.8-8.1); Sodium 141 mmol/L (136-145)
[2021-09-22] MEDS ORDERED: PROPOFOL 20 ML ONE (13:29)
[2021-09-22] MEDS ORDERED: Fentanyl 100 MCG/2 ML VIAL ONE (13:30)
[2021-09-22] MEDS ORDERED: CEFAZOLIN 1 GM VIAL ONE (13:33)
[2021-09-22] MEDS ORDERED: Lidocaine 2% PF 5 ML VIAL ONE (13:34)
[2021-09-22] MEDS ORDERED: Neomycin-Polymyxin 1 ML AMP ONE (13:44)
[2021-09-22] MEDS ORDERED: Ondansetron PF 4 MG/2 ML Vial ONE (13:58)
[2021-09-22] MEDS ORDERED: Bupivacaine 0.5% 10 ML VIAL ONE (14:11)
[2021-09-22] MEDS ORDERED: Labetalol HCl 100 MG/20 ML VIAL ONE (14:35)
== END 2021-09-22 16:25 | disposition home or self-care (01) ==
LOC: CSHSDC 10:56
PROVIDERS: ATTEND Podiatrist
PROC: 0Y6Y0Z0 Detachment at Left 5th Toe, Complete, Open Approach (ICD-10-PCS; principal; 2021-09-22)
DX: M86.672 Other chronic osteomyelitis, left ankle and foot (principal); E11.52 Type 2 diabetes mellitus with diabetic peripheral angiopathy with gangrene; I96 Gangrene, not elsewhere classified; M14.671 Charcot's joint, right ankle and foot; M20.41 Other hammer toe(s) (acquired), right foot; M20.42 Other hammer toe(s) (acquired), left foot; E78.00 Pure hypercholesterolemia, unspecified; M10.9 Gout, unspecified; Z79.02 Long term (current) use of antithrombotics/antiplatelets; Z79.2 Long term (current) use of antibiotics; Z79.84 Long term (current) use of oral hypoglycemic drugs; Z79.4 Long term (current) use of insulin; Z79.82 Long term (current) use of aspirin; Z79.899 Other long term (current) drug therapy
CPT/HCPCS: 36416; 80053; 87070; 87077; 87186; 87205; 88305; 88311; J0690; J2001; J2405; J2704; J3010; J3490

== ENCOUNTER 2022-03-22 21:27 | Inpatient (IN) | payer MEDICARE ==
[2022-03-22] MEDS ORDERED: Aspirin Chewable 81 MG TAB ONE (22:06)
[2022-03-22] MEDS ORDERED: Nitroglycerin 0.4 MG TAB 1 EACH ONE ×2 (22:07→22:20)
[2022-03-22 22:14] LABS: #Basophils 0.1 10x3/uL (0.0-0.2); #Eosinphils 0.3 10x3/uL (0.0-0.5); #Neutrophils 5.4 10x3/uL (1.5-8.4); %Basophils 0.7 % (0.0-2.0); %Eosinophils 3.5 % (0.0-6.0); %Monocytes 11.6 % (0.0-10.0); %Neutrophils 62.6 % (40.0-75.0); Hemoglobin 10.2 g/dL (13.5-17.5); Mean Corpuscular HGB CONC 32.5 g/dL (32.0-36.0); Mean Corpuscular Hemoglobin 29.7 pg (27.0-33.0); Mean Corpuscular Volume 91.5 fl (81.2-95.1); Mean Platelet Volume 10.8 fl (7.4-10.4); Platelet Count 220 10x3/uL (150-450); RBC Distribution Width 16.9 % (11.5-14.5); Red Blood Cell (RBC) Count 3.43 10x6/uL (4.32-5.72); White Blood Cell (WBC) Count 8.6 10x3/uL (3.5-10.5)
[2022-03-22 22:26] LABS: ALT (SGPT) 36 U/L (8-55); AST (SGOT) 87 U/L (5-34); Alkaline Phosphatase 279 U/L (40-110); Anion Gap 17 mmol/L (10-20); BUN (Urea Nitrogen) 31 mg/dL (8.4-25.7); Bilirubin, Total 1.1 mg/dL (0.2-1.2); Calc. Creatinine Clearance 0 mL/min (70-130); Calcium 8.3 mg/dL (7.8-10.44); Carbon Dioxide 18 mmol/L (23-31); Chloride 107 mmol/L (98-107); Estimated GFR 21; Glucose 129 mg/dL (80-115); Lipase 37 U/L (8-78); Magnesium 1.2 mg/dL (1.6-2.6); Potassium 3.4 mmol/L (3.5-5.1); Sodium 139 mmol/L (136-145)
[2022-03-22] MEDS ORDERED: Nitroglycerin 50 MG/250 ML BOT 250 ML ONE (23:07)
[2022-03-22] MEDS ORDERED: Metoclopramide HCl 10 MG/2 ML VIAL ONE (23:51)
[2022-03-23 00:28] LABS: PTT 32.5 sec (22.0-33.0); Prothrombin Time 10.8 sec (9.5-12.1)
[2022-03-23 01:01] LABS: SARS-CoV-2 NAA Rapid Test Not Detected (NotDetected)
[2022-03-23] MEDS ORDERED: Morphine 2 MG/ML VIAL SLOW IVP SCH (01:15)
[2022-03-23] MEDS ORDERED: Nitroglycerin 50 MG/250 ML BOT 250 ML IVPB SCH (01:15)
[2022-03-23] MEDS ORDERED: Magnesium 2 GM/50 ML(in water) 2 GM in Premix Bag 1 BAG IVPB SCH ×2 (01:15→05:45)
[2022-03-23] MEDS ORDERED: Metoprolol Tartrate 5 MG/5 ML VIAL IVP SCH (01:30)
[2022-03-23] MEDS ORDERED: Ondansetron PF 4 MG/2 ML Vial IVP SCH (01:30)
[2022-03-23] MEDS ORDERED: Heparin 25,000 units/D5W 500 ML IVPB SCH (01:30)
[2022-03-23] MEDS ORDERED: Heparin 10,000 UNITS/ 10 ML VIAL SLOW IVP SCH (01:30)
[2022-03-23 01:42] LABS: Magnesium 1.1 mg/dL (1.6-2.6)
[2022-03-23 01:47] LABS: Troponin I 0.011 ng/mL (< 0.028)
[2022-03-23 02:21] LABS: Platelet Count 213 10x3/uL (150-450)
[2022-03-23] MEDS ORDERED: Clopidogrel Bisulfate 75 MG TAB PO SCH ×3 (03:00→09:00)
[2022-03-23] MEDS ORDERED: Sodium Chloride 0.9% 500 ML IV SCH (03:00)
[2022-03-23] MEDS ORDERED: Dextrose 50% Abboject 50 ML SYRINGE SLOW IVP PRN (03:05)
[2022-03-23] MEDS ORDERED: Morphine 2 MG/ML VIAL SLOW IVP PRN (03:05)
[2022-03-23] MEDS ORDERED: HumaLOG 300 UNITS/3 ML VIAL SC PRN (03:05)
[2022-03-23] MEDS ORDERED: Dextrose 5% in Water 1,000 ML IV PRN (03:05)
[2022-03-23] MEDS ORDERED: Potassium Chloride 20 MEQ TAB PO SCH (03:15)
[2022-03-23] MEDS: 1/2 NS w/KCL 20 mEq 1,000 ML IV SCH ×2 (03:36→13:39)
[2022-03-23 05:00] LABS: #Monocytes 0.6 10x3/uL (0.0-1.1); #Neutrophils 10.4 10x3/uL (1.5-8.4); %Basophils 0.1 % (0.0-2.0); %Eosinophils 0.3 % (0.0-6.0); %Lymphocytes 3.8 % (18.0-47.0); %Monocytes 5.3 % (0.0-10.0); %Neutrophils 90.2 % (40.0-75.0); Hemoglobin 9.6 g/dL (13.5-17.5); Mean Corpuscular HGB CONC 32.2 g/dL (32.0-36.0); Mean Corpuscular Hemoglobin 29.7 pg (27.0-33.0); Mean Corpuscular Volume 92.3 fl (81.2-95.1); Mean Platelet Volume 10.6 fl (7.4-10.4); Platelet Count 205 10x3/uL (150-450); RBC Distribution Width 16.7 % (11.5-14.5); Red Blood Cell (RBC) Count 3.23 10x6/uL (4.32-5.72); White Blood Cell (WBC) Count 11.5 10x3/uL (3.5-10.5)
[2022-03-23 05:05] LABS: Anion Gap 16 mmol/L (10-20); BUN (Urea Nitrogen) 29 mg/dL (8.4-25.7); Calc. Creatinine Clearance 34 mL/min (70-130); Calcium 8.2 mg/dL (7.8-10.44); Carbon Dioxide 19 mmol/L (23-31); Cardiac Risk 2.4 (Less than 4.5); Chloride 108 mmol/L (98-107); Cholesterol 90 mg/dl (< 200 Desired); Estimated GFR 22; Glucose 146 mg/dL (80-115); HDL Cholesterol 38 mg/dL (>60 Neg Risk); LDL Cholesterol, Calculated 44 mg/dL; Magnesium 1.4 mg/dL (1.6-2.6); Potassium 3.6 mmol/L (3.5-5.1); Sodium 139 mmol/L (136-145); Triglycerides 39 mg/dL (Less than 150)
[2022-03-23] MEDS ORDERED: Acetaminophen 325 MG TAB PO PRN (05:24)
[2022-03-23 05:30] VITALS: BMI 28.4
[2022-03-23 05:39] VITALS: TEMP 100.4
[2022-03-23] MEDS ORDERED: EPOETIN ALFA-EPBX (ESRD) 4,000 UNIT/ML VIAL SC SCH (07:15)
[2022-03-23] MEDS ORDERED: Carvedilol 25 MG TAB PO SCH ×2 (07:30→08:00)
[2022-03-23 07:44] LABS: Bilirubin Neg (Negative); Blood, Urine Negative (Negative); CAUTI Indications for Culture Fever or rigors; Clarity Clear (Clear); Glucose, Urine (Dipstick) 50 mg/dL (Negative); Ketone, Urine Negative (Negative); Leukocyte Negative (Negative); Nitrite Negative (Negative); Protein, Urine (Dipstick) 100 mg/dl (Neg-Trace); Specific Gravity, Urine 1.005 (1.005-1.030); pH, Urine 6.5 (5.0-9.0)
[2022-03-23 07:49] LABS: Urine Culture Reflex No No
[2022-03-23] MEDS ORDERED: Ferrous Sulfate 325 MG TAB PO SCH (08:00)
[2022-03-23 08:03] LABS: Bacteria/HPF None Seen HPF (None Seen); RBC/HPF 0-3 HPF (0-3); Squamous Epithelial None Seen HPF (0-3); WBC/HPF None Seen HPF (0-3)
[2022-03-23] MEDS ORDERED: Amlodipine 5 MG TAB PO SCH (09:00)
[2022-03-23] MEDS ORDERED: Aspirin 81 mg Enteric Coated Tablet PO SCH (09:00)
[2022-03-23] MEDS ORDERED: Aspirin Chewable 81 MG TAB PO SCH (09:00)
[2022-03-23] MEDS ORDERED: cloNIDine 0.1 MG TAB PO SCH (09:00)
[2022-03-23] MEDS ORDERED: FLU VACC QS2022-23(65YR UP)/PF 240 MCG/0.7 ML SYRINGE IM ONE (09:00)
[2022-03-23] MEDS ORDERED: hydrALAZINE 25 MG TAB PO SCH (09:00)
[2022-03-23 09:19] VITALS: BP 111/51
[2022-03-23] MEDS ORDERED: EPOETIN ALFA-EPBX (ESRD) 10,000 UNIT/ML VIAL SC SCH (09:30)
[2022-03-23 12:46] LABS: Hemoglobin A1c 5.3 % (4.0-6.0)
[2022-03-23] MEDS ORDERED: Lantus 1000 UNITS/10 ML VIAL SC SCH (21:00)
[2022-03-23] MEDS ORDERED: Rosuvastatin 20 MG TAB PO SCH (21:00)
== END 2022-03-23 17:25 | disposition home or self-care (01) | DRG 305 ==
LOC: CSHERS 21:27 → CSHICU 03-23 00:29
PROVIDERS: ADMIT Family Medicine; ATTEND Internal Medicine
DX: I16.0 Hypertensive urgency (principal); N18.4 Chronic kidney disease, stage 4 (severe); I16.1 Hypertensive emergency; I25.110 Atherosclerotic heart disease of native coronary artery with unstable angina pectoris; N17.9 Acute kidney failure, unspecified; R07.9 Chest pain, unspecified; I13.0 Hypertensive heart and chronic kidney disease with heart failure and stage 1 through stage 4 chronic kidney disease, or unspecified chronic kidney disease; E11.22 Type 2 diabetes mellitus with diabetic chronic kidney disease; Z96.651 Presence of right artificial knee joint; E87.6 Hypokalemia; E78.5 Hyperlipidemia, unspecified; E11.42 Type 2 diabetes mellitus with diabetic polyneuropathy; I50.9 Heart failure, unspecified; E83.42 Hypomagnesemia; Z20.822 Contact with and (suspected) exposure to COVID-19; Z79.82 Long term (current) use of aspirin; Z79.02 Long term (current) use of antithrombotics/antiplatelets; Z79.899 Other long term (current) drug therapy; Z95.5 Presence of coronary angioplasty implant and graft; Z98.49 Cataract extraction status, unspecified eye; Z87.11 Personal history of peptic ulcer disease; I25.2 Old myocardial infarction
CPT/HCPCS: 36415; 36416; 71045; 80048; 80053; 80061; 81001; 83036; 83690; 83735; 83880; 84484; 85014; 85018; 85025; 85049; 85610; 85730; 87040; 87077; 87149; 87186; 87804; 93005; 93010; 93306; 94760; 96374; 96375; J1644; J2272; J2405; J2765; J3475; J3480; J7030; Q5105; U0002

== ENCOUNTER 2022-03-24 02:47 | Inpatient (IN) | payer MEDICARE ==
[2022-03-24 05:36] VITALS: BMI 28.1
[2022-03-24] MEDS: Sodium Chloride 0.9% 1,000 ML IV SCH ×2 (06:23→20:55)
[2022-03-24] MEDS ORDERED: Dextrose 50% Abboject 50 ML SYRINGE SLOW IVP PRN (06:38)
[2022-03-24] MEDS ORDERED: HumaLOG 300 UNITS/3 ML VIAL SC PRN (06:38)
[2022-03-24] MEDS ORDERED: Dextrose 5% in Water 1,000 ML IV PRN (06:38)
[2022-03-24 06:47] LABS: #Eosinphils 0.4 10x3/uL (0.0-0.5); #Monocytes 0.8 10x3/uL (0.0-1.1); #Neutrophils 7.2 10x3/uL (1.5-8.4); %Basophils 0.2 % (0.0-2.0); %Eosinophils 4.2 % (0.0-6.0); %Lymphocytes 8.4 % (18.0-47.0); %Monocytes 8.8 % (0.0-10.0); %Neutrophils 78.2 % (40.0-75.0); Hemoglobin 9.1 g/dL (13.5-17.5); Mean Corpuscular HGB CONC 31.8 g/dL (32.0-36.0); Mean Corpuscular Hemoglobin 29.4 pg (27.0-33.0); Mean Corpuscular Volume 92.6 fl (81.2-95.1); Mean Platelet Volume 10.9 fl (7.4-10.4); Platelet Count 168 10x3/uL (150-450); RBC Distribution Width 17.4 % (11.5-14.5); Red Blood Cell (RBC) Count 3.09 10x6/uL (4.32-5.72); White Blood Cell (WBC) Count 9.2 10x3/uL (3.5-10.5)
[2022-03-24 07:04] LABS: Anion Gap 14 mmol/L (10-20); BUN (Urea Nitrogen) 36 mg/dL (8.4-25.7); Calc. Creatinine Clearance 27 mL/min (70-130); Calcium 8.2 mg/dL (7.8-10.44); Carbon Dioxide 18 mmol/L (23-31); Chloride 108 mmol/L (98-107); Estimated GFR 17; Glucose 114 mg/dL (80-115); Magnesium 1.7 mg/dL (1.6-2.6); Potassium 4.1 mmol/L (3.5-5.1); Sodium 136 mmol/L (136-145)
[2022-03-24] MEDS ORDERED: cloNIDine 0.1 MG TAB PO SCH (09:00)
[2022-03-24] MEDS: hydrALAZINE 25 MG TAB PO SCH ×3 (09:10→20:56)
[2022-03-24] MEDS: Aspirin 81 mg Enteric Coated Tablet PO SCH (09:10)
[2022-03-24] MEDS: Amlodipine 5 MG TAB PO SCH (09:11)
[2022-03-24] MEDS: Carvedilol 25 MG TAB PO SCH ×2 (09:11→16:46)
[2022-03-24] MEDS: Clopidogrel Bisulfate 75 MG TAB PO SCH (09:11)
[2022-03-24] MEDS: Cefepime 1 GM in Sodium Chloride 0.9% 100 ML IVPB SCH ×2 (09:11→20:57)
[2022-03-24] MEDS: Tamsulosin HCl 0.4 MG CAP PO SCH (09:11)
[2022-03-24] MEDS: Heparin 5,000 UNITS/ML VIAL SC SCH ×3 (09:12→20:56)
[2022-03-24 09:22] LABS: ALT (SGPT) 63 U/L (8-55); AST (SGOT) 81 U/L (5-34); Albumin 3.2 g/dL (3.4-4.8); Alkaline Phosphatase 214 U/L (40-110); Bilirubin, Direct 2.7 mg/dL (0.1-0.3); Bilirubin, Total 3.5 mg/dL (0.2-1.2); Protein, Total 6.1 g/dL (5.8-8.1)
[2022-03-24 10:22] LABS: Bilirubin Neg (Negative); Blood, Urine 10 (Negative); Clarity Clear (Clear); Glucose, Urine (Dipstick) Normal (Negative); Ketone, Urine Negative (Negative); Leukocyte Negative (Negative); Nitrite Negative (Negative); Protein, Urine (Dipstick) 100 mg/dl (Neg-Trace); Specific Gravity, Urine 1.005 (1.005-1.030)
[2022-03-24 10:35] LABS: WBC/HPF 0-3 HPF (0-3)
[2022-03-24 10:36] LABS: Bacteria/HPF Rare-Few HPF (None Seen); Squamous Epithelial 0-3 HPF (0-3)
[2022-03-24] MEDS: Rosuvastatin 20 MG TAB PO SCH (20:56)
[2022-03-25 06:12] LABS: #Eosinphils 0.4 10x3/uL (0.0-0.5); #Monocytes 0.6 10x3/uL (0.0-1.1); #Neutrophils 3.8 10x3/uL (1.5-8.4); %Basophils 0.5 % (0.0-2.0); %Eosinophils 6.6 % (0.0-6.0); %Monocytes 10.8 % (0.0-10.0); %Neutrophils 68.9 % (40.0-75.0); Hemoglobin 9.2 g/dL (13.5-17.5); Mean Corpuscular HGB CONC 32.3 g/dL (32.0-36.0); Mean Corpuscular Hemoglobin 30.3 pg (27.0-33.0); Mean Corpuscular Volume 93.8 fl (81.2-95.1); Mean Platelet Volume 11.2 fl (7.4-10.4); Platelet Count 177 10x3/uL (150-450); Red Blood Cell (RBC) Count 3.04 10x6/uL (4.32-5.72); White Blood Cell (WBC) Count 5.5 10x3/uL (3.5-10.5)
[2022-03-25 06:21] LABS: ALT (SGPT) 44 U/L (8-55); AST (SGOT) 45 U/L (5-34); Alkaline Phosphatase 224 U/L (40-110); Anion Gap 14 mmol/L (10-20); BUN (Urea Nitrogen) 37 mg/dL (8.4-25.7); Bilirubin, Total 1.8 mg/dL (0.2-1.2); Calc. Creatinine Clearance 26 mL/min (70-130); Calcium 8.1 mg/dL (7.8-10.44); Carbon Dioxide 18 mmol/L (23-31); Chloride 110 mmol/L (98-107); Estimated GFR 16; Globulin 2.8 g/dL (2.4-3.5); Glucose 113 mg/dL (80-115); Potassium 3.8 mmol/L (3.5-5.1); Protein, Total 5.8 g/dL (5.8-8.1); Sodium 138 mmol/L (136-145)
[2022-03-25] MEDS: Clopidogrel Bisulfate 75 MG TAB PO SCH (09:21)
[2022-03-25] MEDS: Cefepime 1 GM in Sodium Chloride 0.9% 100 ML IVPB SCH (09:21)
[2022-03-25] MEDS: Aspirin 81 mg Enteric Coated Tablet PO SCH (09:21)
[2022-03-25] MEDS: hydrALAZINE 25 MG TAB PO SCH ×3 (09:21→20:28)
[2022-03-25] MEDS: Heparin 5,000 UNITS/ML VIAL SC SCH ×3 (09:22→20:35)
[2022-03-25] MEDS: Amlodipine 5 MG TAB PO SCH (09:22)
[2022-03-25] MEDS: Tamsulosin HCl 0.4 MG CAP PO SCH (09:22)
[2022-03-25] MEDS: Carvedilol 25 MG TAB PO SCH ×2 (09:29→18:59)
[2022-03-25] MEDS ORDERED: cefTRIAXone\\ROCEPHIN 2 GM in Sodium Chloride 0.9% 100 ML IVPB SCH (13:00)
[2022-03-25] MEDS: Albumin 25% 25 GM/100 ML BOT IVPB SCH ×2 (13:18→19:00)
[2022-03-25] MEDS: Rosuvastatin 20 MG TAB PO SCH (20:28)
[2022-03-26] MEDS: Albumin 25% 25 GM/100 ML BOT IVPB SCH ×2 (00:22→06:10)
[2022-03-26 05:17] LABS: Hemoglobin 8.4 g/dL (13.5-17.5); Mean Corpuscular HGB CONC 31.8 g/dL (32.0-36.0); Mean Corpuscular Hemoglobin 29.8 pg (27.0-33.0); Mean Corpuscular Volume 93.6 fl (81.2-95.1); Mean Platelet Volume 11.6 fl (7.4-10.4); Platelet Count 164 10x3/uL (150-450); RBC Distribution Width 16.9 % (11.5-14.5); Red Blood Cell (RBC) Count 2.82 10x6/uL (4.32-5.72); White Blood Cell (WBC) Count 5.1 10x3/uL (3.5-10.5)
[2022-03-26 05:39] LABS: ALT (SGPT) 36 U/L (8-55); AST (SGOT) 43 U/L (5-34); Albumin 3.7 g/dL (3.4-4.8); Alkaline Phosphatase 261 U/L (40-110); Anion Gap 14 mmol/L (10-20); BUN (Urea Nitrogen) 31 mg/dL (8.4-25.7); Bilirubin, Total 1.3 mg/dL (0.2-1.2); Calc. Creatinine Clearance 26 mL/min (70-130); Calcium 8.7 mg/dL (7.8-10.44); Carbon Dioxide 17 mmol/L (23-31); Chloride 111 mmol/L (98-107); Estimated GFR 16; Globulin 2.8 g/dL (2.4-3.5); Glucose 124 mg/dL (80-115); Potassium 3.6 mmol/L (3.5-5.1); Protein, Total 6.5 g/dL (5.8-8.1); Sodium 138 mmol/L (136-145)
[2022-03-26 06:32] LABS: MDiff Complete? YES
[2022-03-26 07:03] LABS: Eosinophils 9 % (0-10); Lymphocytes 17 % (21-51); Monocytes 15 % (0-10); Neutrophil 58 % (42-75)
[2022-03-26] MEDS: Aspirin 81 mg Enteric Coated Tablet PO SCH (08:32)
[2022-03-26] MEDS: Heparin 5,000 UNITS/ML VIAL SC SCH (08:32)
[2022-03-26] MEDS: Clopidogrel Bisulfate 75 MG TAB PO SCH (08:32)
[2022-03-26] MEDS: hydrALAZINE 25 MG TAB PO SCH (08:32)
[2022-03-26] MEDS: Amlodipine 5 MG TAB PO SCH (08:32)
[2022-03-26] MEDS: Carvedilol 25 MG TAB PO SCH (08:32)
[2022-03-26] MEDS: Tamsulosin HCl 0.4 MG CAP PO SCH (08:32)
[2022-03-26 09:50] VITALS: BP 192/86; TEMP 98.6
== END 2022-03-26 10:40 | disposition home or self-care (01) | DRG 872 ==
LOC: CSHTELE 05:28 → OBSVTOIN 06:12
PROVIDERS: ADMIT Family Medicine; ATTEND Family Medicine
PROC: 30233J1 Transfusion of Nonautologous Serum Albumin into Peripheral Vein, Percutaneous Approach (ICD-10-PCS; principal; 2022-03-25)
DX: R78.81 Bacteremia (principal); N18.4 Chronic kidney disease, stage 4 (severe); Z16.23 Resistance to quinolones and fluoroquinolones; N17.9 Acute kidney failure, unspecified; K86.2 Cyst of pancreas; I25.10 Atherosclerotic heart disease of native coronary artery without angina pectoris; I25.5 Ischemic cardiomyopathy; E11.40 Type 2 diabetes mellitus with diabetic neuropathy, unspecified; I12.9 Hypertensive chronic kidney disease with stage 1 through stage 4 chronic kidney disease, or unspecified chronic kidney disease; E11.22 Type 2 diabetes mellitus with diabetic chronic kidney disease; E78.5 Hyperlipidemia, unspecified; M10.9 Gout, unspecified; Z96.651 Presence of right artificial knee joint; N40.1 Benign prostatic hyperplasia with lower urinary tract symptoms; R39.11 Hesitancy of micturition; B96.20 Unspecified Escherichia coli [E. coli] as the cause of diseases classified elsewhere; K80.20 Calculus of gallbladder without cholecystitis without obstruction; Z98.890 Other specified postprocedural states; I25.2 Old myocardial infarction; Z95.5 Presence of coronary angioplasty implant and graft; Z79.82 Long term (current) use of aspirin; Z79.899 Other long term (current) drug therapy; Z79.4 Long term (current) use of insulin; Z80.0 Family history of malignant neoplasm of digestive organs; Z91.041 Radiographic dye allergy status; Z80.42 Family history of malignant neoplasm of prostate
CPT/HCPCS: 36415; 36416; 71046; 74176; 74181; 76705; 80048; 80053; 80076; 81001; 82247; 83735; 84145; 84153; 85025; 87040; 87086; J0692; J0696; J1644; J3490; J7050; P9047

== ENCOUNTER 2022-06-09 09:24 | Emergency (ER) | payer MEDICARE ==
[2022-06-09 10:20] LABS: #Eosinphils 0.2 10x3/uL (0.0-0.5); #Monocytes 0.4 10x3/uL (0.0-1.1); #Neutrophils 7.1 10x3/uL (1.5-8.4); %Basophils 0.2 % (0.0-2.0); %Eosinophils 2.5 % (0.0-6.0); %Lymphocytes 7.2 % (18.0-47.0); %Monocytes 4.8 % (0.0-10.0); %Neutrophils 84.7 % (40.0-75.0); Hemoglobin 9.9 g/dL (13.5-17.5); Mean Corpuscular HGB CONC 31.6 g/dL (32.0-36.0); Mean Corpuscular Hemoglobin 29.2 pg (27.0-33.0); Mean Corpuscular Volume 92.3 fl (81.2-95.1); Mean Platelet Volume 11.5 fl (7.4-10.4); Platelet Count 170 10x3/uL (150-450); RBC Distribution Width 14.8 % (11.5-14.5); Red Blood Cell (RBC) Count 3.39 10x6/uL (4.32-5.72); White Blood Cell (WBC) Count 8.4 10x3/uL (3.5-10.5)
[2022-06-09 10:36] LABS: ALT (SGPT) 102 U/L (8-55); AST (SGOT) 184 U/L (5-34); Albumin 4.2 g/dL (3.4-4.8); Alkaline Phosphatase 135 U/L (40-110); Anion Gap 17 mmol/L (10-20); BUN (Urea Nitrogen) 38 mg/dL (8.4-25.7); Bilirubin, Total 1.2 mg/dL (0.2-1.2); Calc. Creatinine Clearance 0 mL/min (70-130); Carbon Dioxide 20 mmol/L (23-31); Chloride 110 mmol/L (98-107); Estimated GFR 24; Globulin 2.8 g/dL (2.4-3.5); Glucose 183 mg/dL (80-115); Lipase 30 U/L (8-78); Potassium 4.3 mmol/L (3.5-5.1); Sodium 143 mmol/L (136-145)
[2022-06-09] MEDS ORDERED: Ondansetron PF 4 MG/2 ML Vial ONE (10:44)
[2022-06-09] MEDS ORDERED: Morphine 4 MG/ML VIAL ONE (10:53)
[2022-06-09 11:16] LABS: INR-International Normal Ratio 0.9; Prothrombin Time 10.3 sec (9.5-12.1)
[2022-06-09] MEDS ORDERED: Piperacillin/Tazobactam 3.375 GM VIAL ONE (14:19)
== END 2022-06-09 15:19 | disposition short-term general hospital (02) ==
LOC: CSHERS 09:24
DX: K80.20 Calculus of gallbladder without cholecystitis without obstruction (principal); R74.01 Elevation of levels of liver transaminase levels; I13.0 Hypertensive heart and chronic kidney disease with heart failure and stage 1 through stage 4 chronic kidney disease, or unspecified chronic kidney disease; E11.22 Type 2 diabetes mellitus with diabetic chronic kidney disease; N18.9 Chronic kidney disease, unspecified; I50.9 Heart failure, unspecified; I25.10 Atherosclerotic heart disease of native coronary artery without angina pectoris
CPT/HCPCS: 36415; 36416; 71045; 74176; 76705; 80053; 82140; 83690; 84484; 85025; 85610; 85730; 93005; 96361; 96374; 96375; J2270; J2405; J2543

== ENCOUNTER 2023-11-04 09:02 | Day surgery (SDC) | payer MEDICARE ==
[2023-11-02 11:30] VITALS: BMI 29.5
[2023-11-04] MEDS ORDERED: Bupivacaine PF 0.5% 30 ML VIAL ONE (10:07)
[2023-11-04 10:13] LABS: Hematocrit 32.7 % (38.8-50.0); Hemoglobin 10.9 g/dL (13.5-17.5); Mean Corpuscular HGB CONC 33.3 g/dL (32.0-36.0); Mean Corpuscular Hemoglobin 35.5 pg (27.0-33.0); Mean Corpuscular Volume 106.5 fL (81.2-95.1); Mean Platelet Volume 11.6 fL (7.4-10.4); Platelet Count 128 10x3/uL (150-450); RBC Distribution Width 15.7 % (11.5-14.5); Red Blood Cell (RBC) Count 3.07 10x6/uL (4.32-5.72); White Blood Cell (WBC) Count 5.8 10x3/uL (3.5-10.5)
[2023-11-04] MEDS ORDERED: CEFAZOLIN 2 GM VIAL ONE (10:56)
[2023-11-04] MEDS ORDERED: Dexamethasone 4 mg/ml Vial ONE (11:07)
[2023-11-04] MEDS ORDERED: Lidocaine 1% PF 5 ML VIAL ONE (11:07)
[2023-11-04] MEDS ORDERED: Ondansetron PF 4 MG/2 ML Vial ONE (11:07)
[2023-11-04] MEDS ORDERED: PROPOFOL 40 ML ONE (11:07)
[2023-11-04] MEDS ORDERED: fentaNYL 50 mcg/mL 1 mL Vial ONE (11:07)
[2023-11-04] MEDS ORDERED: PHENYLEPHRINE-NS 100 MCG/ML 10 ML SYRINGE ONE (11:09)
[2023-11-04] MEDS ORDERED: Glycopyrrolate 0.2 MG/ML 5 ML SYRINGE ONE (11:09)
[2023-11-04] MEDS ORDERED: Lidocaine 1% (PF) 30 ML VIAL ONE (11:09)
[2023-11-04] MEDS ORDERED: Propofol 1,000 MG/100 ML VIAL IV ONE (11:20)
[2023-11-04] MEDS ORDERED: Midazolam HCl 2 mg/2 ml Vial ONE (11:24)
[2023-11-04] MEDS ORDERED: hydrALAZINE 20 MG/ML VIAL ONE (13:40)
[2023-11-04] MEDS ORDERED: hydrALAZINE 20 MG/ML VIAL SLOW IVP PRN (13:47)
[2023-11-04] MEDS ORDERED: hydrALAZINE 20 MG/ML VIAL SLOW IVP SCH (14:00)
== END 2023-11-04 14:20 | disposition home or self-care (01) ==
LOC: CSHSDC 09:02
PROVIDERS: ATTEND Podiatrist Foot & Ankle Surgery
PROC: 0SGQ04Z Fusion of Left Toe Phalangeal Joint with Internal Fixation Device, Open Approach (ICD-10-PCS; principal; 2023-11-04)
DX: M20.32 Hallux varus (acquired), left foot (principal); M20.42 Other hammer toe(s) (acquired), left foot; I11.0 Hypertensive heart disease with heart failure; I50.20 Unspecified systolic (congestive) heart failure; E11.40 Type 2 diabetes mellitus with diabetic neuropathy, unspecified; E78.5 Hyperlipidemia, unspecified; I25.10 Atherosclerotic heart disease of native coronary artery without angina pectoris; Z79.84 Long term (current) use of oral hypoglycemic drugs; Z79.82 Long term (current) use of aspirin; Z79.899 Other long term (current) drug therapy
CPT/HCPCS: 28755; 73630; 82962; 85027; J0360; J0665; J1100; J2001; J2250; J2405; J2704 ×2; J3010; 36415; 36416; C1889